=== PATIENT | male | born 1960 | race Caucasian/White ===

== ENCOUNTER → 2016-08-21 | Outpatient (CLI) | payer MEDICARE, OTHER ==
[~2016-08-21] MED LIST: ASPI1TAB PO; ASPI81TA13 PO; ATEN100T PO; CITA20TA4 PO; CYCL10TA PO; DICL75TA PO; KEPP1000 PO; METF1000 PO; MOBI7.5T10 PO; NEUR300C PO; ROBA750T4 PO; SYMB16INH INH; TYLE167L PO; VITA200028 PO
--- NOTE | 2016-08-21 10:06 | REP ---
PA and lateral chest 08/21/2016 Indication: Moderate persistent asthma, uncomplicated Comparison made with PA and lateral chest 06/06/2014, [facility], and PA and lateral chest 08/17/2014 from [facility] Findings: First and second ribs bilaterally are partially omitted from view. Cardial mediastinal silhouette is normal. Lungs are clear bilaterally. There are mild degenerate changes in thoracic spine. Soft tissues are within normal limits Impression: no acute cardiopulmonary process Signed by Christine Willis MD 08/21/2016 09:58 A
== END ==
LOC: M SMT 09:45
PROVIDERS: ATTEND Nurse Practitioner Adult Health
DX: J45.40 Moderate persistent asthma, uncomplicated (principal)

== ENCOUNTER → 2018-03-22 | Outpatient (CLI) | payer MEDICARE ==
[~2018-03-22] MED LIST changes: -ASPI1TAB PO; -ASPI81TA13 PO; -ATEN100T PO; -CITA20TA4 PO; -CYCL10TA PO; -DICL75TA PO; -KEPP1000 PO; -METF1000 PO; -MOBI7.5T10 PO; -NEUR300C PO; +PROHANCE 279.3MG/ML 15ML VIAL (A9576) As Ordered; +PROHANCE 279.3MG/ML 5ML VIAL (A9576) As Ordered; -ROBA750T4 PO; -SYMB16INH INH; -TYLE167L PO; -VITA200028 PO
== END ==
LOC: M RAD 14:58
DX: M51.16 Intervertebral disc disorders with radiculopathy, lumbar region (principal); M48.061 Spinal stenosis, lumbar region without neurogenic claudication
CPT/HCPCS: A9576

== ENCOUNTER → 2019-01-08 | Outpatient (CLI) | payer MEDICARE ==
[~2019-01-08] MED LIST changes: +ASPI81TA24 PO; +ASPI81TA26 PO; +ATEN100T PO; +CELE40TA; +CITA20TA6 PO; +CYCL10TA PO; +DICL75TA PO; +DOXY100C; +KEPP10002 PO; +METF10004 PO; +MOBI4TAB PO; +MULT1TAB10 PO; +MULT200T7 PO; +NEUR300C PO; +OMEP40CA2; +POTA10CA32; -PROHANCE 279.3MG/ML 15ML VIAL (A9576) As Ordered; -PROHANCE 279.3MG/ML 5ML VIAL (A9576) As Ordered; +ROBA750T4 PO; +SYMB16INH INH; +TIZA4TAB4; +TOPI50TA9; +TYLE167L PO; +VITA200028 PO
--- NOTE | 2019-01-10 08:54 | REP ---
MR thoracic spine without contrast History: Radiculopathy A small central disc protrusion is present at the T1-2 level. There is minimal effacement of the thecal sac without spinal cord compression. The T1 neural foramina are patent. A small right paracentral disc protrusion is present at the T5-6 level. There is minimal effacement of the thecal sac without spinal cord compression. The T5 neural foramina are patent. A small central disc protrusion is present at the T6-7 level. The disc protrusion abuts the spinal cord. The T6 neural foramina are patent. A small right paracentral disc protrusion is present at the T7-8 level. There is minimal effacement of the thecal sac without spinal cord compression. The T7 neural foramina are patent. A small left paracentral disc protrusion is present in the T8-9 level. There is minimal effacement of the thecal sac without spinal cord compression. The T8 neural foramina are patent. A small disc protrusion central and eccentric to the left is present at the T9-10 level. There is minimal effacement of the thecal sac without spinal cord compression. The T9 neural foramina are patent. Facet hypertrophy is present at the T11-12 level. There is minimal effacement of the thecal sac without spinal cord compression. The T11 neural foramina are patent. A small right paracentral disc protrusion is present at the T12-L1 level. There is minimal effacement of the thecal sac without spinal cord compression. The T12 neural foramina are patent. There is no other disc bulge or herniation. The remaining neural foramina are patent. The spinal cord is normal in signal intensity. There is loss of height of several mid and lower thoracic intervertebral discs consistent with disc degeneration. Normal signal intensity is present in the thoracic vertebral bodies. Impression: Small disc protrusions without spinal cord compression is described above. Electronically Signed by Yony Newberry MD 01/10/2019 08:45 A
== END ==
LOC: M RAD 14:02
PROVIDERS: ATTEND Physician Assistant
DX: M54.16 Radiculopathy, lumbar region (principal); M51.24 Other intervertebral disc displacement, thoracic region

== ENCOUNTER → 2020-04-25 | Outpatient (CLI) | payer MEDICARE ==
[~2020-04-25] MED LIST changes: +CYCL-707 PO; -CYCL10TA PO; -OMEP40CA2; +OMEP40CA97
--- NOTE | 2020-04-30 06:44 | SLEEPCENT ---
DATE: 04/25/2020 STUDY: Nocturnal polysomnography CPAP titration. ORDERING PROVIDER: Magy Hope RN, ANP. FINDINGS: Nocturnal polysomnography was performed for the titration of pressure therapy in this patient with obstructive sleep apnea syndrome, who has accomplished significant weight loss. For testing, a [employer] Quattro Mirage full face mask of medium size was used. Four centimeters of water pressure were applied to the circuit and the lights were extinguished. Eight hours and 10 minutes of data were reviewed. There were 359 minutes of sleep identified. Sleep latency was mildly prolonged at 37.5 minutes. REM latency was more so prolonged at 264 minutes. Sleep architecture improved late in the study and there was a prolonged REM cycle noted. Overall sleep efficiency was 73.6%. The electrocardiogram showed a sinus rhythm with an average heart rate of 52 beats per minute. EEG showed normal waveforms for wake and sleep. Respiratory events were fully palliated with CPAP at a pressure of +8. The remaining measures of sleep physiology were normal. IMPRESSION: Obstructive sleep apnea syndrome (G47.33). RECOMMENDATION: Nightly use of pressure therapy 8 cm of water. MTDD
== END ==
LOC: M SLEEP 20:00
PROVIDERS: ATTEND Nurse Practitioner Adult Health
DX: G47.33 Obstructive sleep apnea (adult) (pediatric) (principal)

== ENCOUNTER → 2024-08-15 | Outpatient (CLI) | payer OTHER, MEDICARE ==
[~2024-08-15] MED LIST changes: -DOXY100C; +DOXY100C3; -MULT200T7 PO; +MULT200T9 PO; +OMEP40CA4; -OMEP40CA97; -POTA10CA32; +POTA10CA70; +TIZA10TA; -TIZA4TAB4; +TOPI-21; -TOPI50TA9
== END ==
LOC: M RAD 15:42
PROVIDERS: ATTEND Nurse Practitioner Family
DX: M54.2 Cervicalgia (principal); M54.16 Radiculopathy, lumbar region

== ENCOUNTER → 2025-05-25 | Outpatient (REF) | payer MEDICARE, OTHER | LOC: M SMT 12:53 | PROVIDERS: ATTEND Physician Assistant | DX: R31.0 Gross hematuria (principal) ==

== ENCOUNTER → 2025-06-05 | Outpatient (CLI) | payer MEDICARE | LOC: M PLAIMG 13:17 | PROVIDERS: ATTEND Physician Assistant | DX: R31.0 Gross hematuria (principal) ==